=== PATIENT | female | born 1990 | race Two or more races ===

== ENCOUNTER 2023-04-30 12:13 | Emergency (ER) | payer SELFPAY ==
[2023-04-30 12:34] VITALS: BP 115/75; PULSE 79; RESP 17; TEMP 98.4; BMI 26.0
[2023-04-30] MEDS ORDERED: DIPHTH,PERTUSS(ACELL),TET 0.5 ML DISP.SYRIN IM ONE ×2 (13:39→14:18)
[2023-04-30] MEDS ORDERED: ACETAMINOPHEN 325 MG TABLET (FP) PO ONE (13:39)
[2023-04-30] MEDS ORDERED: ACETAMINOPHEN 325 MG TABLET (FP) ONE (14:18)
== END 2023-04-30 16:13 | disposition home or self-care (01) ==
LOC: JER 12:13
PROC: 0HQ0XZZ Repair Scalp Skin, External Approach (ICD-10-PCS; principal; 2023-04-30)
PROC: 3E0234Z Introduction of Serum, Toxoid and Vaccine into Muscle, Percutaneous Approach (ICD-10-PCS; 2023-04-30)
DX: S01.01XA Laceration without foreign body of scalp, initial encounter (principal); R42 Dizziness and giddiness; M54.6 Pain in thoracic spine; M25.512 Pain in left shoulder; M79.602 Pain in left arm; R51.9 Headache, unspecified; R93.0 Abnormal findings on diagnostic imaging of skull and head, not elsewhere classified; Y04.2XXA Assault by strike against or bumped into by another person, initial encounter
CPT/HCPCS: 70450-TC; 72125-TC; 73030-TC-LT-FY; 90715; 99284-25

== ENCOUNTER 2023-05-07 07:48 | Emergency (ER) | payer SELFPAY ==
[2023-05-07 07:58] VITALS: BP 99/68; PULSE 67; RESP 18; TEMP 97.8; BMI 25.8
== END 2023-05-07 08:43 | disposition home or self-care (01) ==
LOC: JERFT 07:48
DX: Z48.02 Encounter for removal of sutures (principal)
CPT/HCPCS: 99281-25